=== PATIENT | female | born 1980 | race Caucasian/White ===

== ENCOUNTER 2018-12-24 07:44 | Emergency (ER) | payer BC ==
[~2018-12-24 07:44] MED LIST: ACET-1966 PO; ALB17R; ALBU8.5H12 IH; ATEN-1 PO; BUSP10TA95 PO; CEFU250 PO; CETI10CA8 PO; CIM300 PO; CIPR-344 PO; CLIN300C99 PO; CYC10 PO; CYCL10TA29 PO; DAR100 PO; FEXO180T74 PO; FLUT12HF2 IH; FLUT16SP20 NS; GUAI1TBM PO; HYDR-653 PO; HYDR115S2 PO; LOR5/325 PO; MONT10TA PO; MYLL PO; OMEP-114 PO; OXYC-865 PO; PAN40 PO; POTA2.5T7 PO; PRED20TA6 PO; QUE25 PO; SALSP; SERT-177 PO; SIMV10TA98 PO; SUC1 PO; SUCR1TAB PO; TRAM-420 PO
--- NOTE | 2018-12-24 07:47 | ER Report ---
History and Physical Time Seen By MD: 07:46 HPI/ROS CHIEF COMPLAINT: Upper respiratory infection HISTORY OF PRESENT ILLNESS: Patient is a 38-year-old female who is a smoker and also has a history of asthma who presents with approximately 2 weeks of an upper respiratory infection and cough along with asthma exacerbation. Patient stated she used her albuterol nebulizer this morning without any relief. She was seen by her family physician yesterday and started on amoxicillin. She reports right- sided chest pain worse with cough. She feels as if she can't "catch her breath". She also is reporting a sore throat. REVIEW OF SYSTEMS: Constitutional: No fever, no chills. Eyes: No discharge. ENT: Sore throat Cardiovascular: Right-sided chest pain Respiratory: Dry cough, shortness of breath. Gastrointestinal: No abdominal pain, no vomiting. Genitourinary: No hematuria. Musculoskeletal: No back pain. Skin: No rashes. Neurological: No headache. Allergies: Coded Allergies: clindamycin (Verified Allergy, Intermediate, SOB, rash, 11/12/15) ranitidine (Verified Allergy, Intermediate, hives, 11/12/15) aspirin (Verified Allergy, Mild, "INTERFERES WITH MY ASTHMA", 11/12/15) latex (Verified Allergy, Mild, SWOLLEN, DYSPNEA, 11/12/15) 'I DON'T REALLY THINK I AM ALLERGIC TO LATEX, I THINK IT IS JUST THE ADHESIVE FROM SOME TAPES" tramadol (Verified Allergy, Mild, RASH, 11/12/15) NSAIDS (Non-Steroidal Anti-Inflamma (Verified Allergy, Unknown, 11/12/15) Penicillins (Unverified Allergy, Unknown, 11/12/15) codeine (Verified Allergy, Unknown, 11/12/15) Home Meds Active Scripts Prednisone (PREDNISONE) 20 Mg Tablet, 60 MG PO QDAY, #12 TAB 0 Refills next dose on 12/25/18 Prov:TI WOODS MD 12/24/18 Omeprazole (PRILOSEC) 20 Mg Capsule., 1 TAB PO BID, #30 TAKE ONE TABLET BY MOUTH TWICE A DAY Prov:SAM DALAL DO 05/31/14 Reported Medications Montelukast Sodium (MONTELUKAST SODIUM) 10 Mg Tablet 12/24/18 Metformin Hcl (METFORMIN HCL ER) 500 Mg Tabcr 12/24/18 Albuterol Sulfate (VENTOLIN HFA) 18 Gm Inh 12/24/18 Gabapentin (GABAPENTIN) 300 Mg Capsule 12/24/18 Amoxicillin/Potassium Clav (AMOX TR-K CLV 875-125 MG TAB) 1 Each Tablet 12/24/18 Buspirone Hcl (BUSPIRONE HCL) 10 Mg Tablet, 10 MG PO BID, #20 TAB 11/12/15 Guaifenesin/Dextromethorphan (MUCINEX DM ER 1,200-60 MG TAB) 1 Each Tbmp.12hr, 0.5 EACH PO DAILY 07/06/15 Albuterol Sul Hfa 90 Mcg 8 Gm (VENTOLIN HFA 90 MCG 8 GM) 8.5 Gm Hfa.aer.ad, 1-2 PUFF IH 3-4XD PRN for SHORTNESS OF BREATH 05/31/14 Discontinued Reported Medications Simvastatin (SIMVASTATIN) 10 Mg Tablet, 10 MG PO HS, TAB 07/06/15 Montelukast Sodium (SINGULAIR) 10 Mg Tablet, 1 TAB PO QDAY TAKE ONE TABLET BY MOUTH EVERY DAY 02/23/15 Fluticasone/Salmeterol (ADVAIR HFA 115-21 MCG INHALER) 12 Gm Hfa.aer.ad, 1 PUFF IH BID 03/27/14 Discontinued Scripts Hydrocodone/Chlorphen Polis (TUSSIONEX PENNKINETIC SUSP) 480 Ml Jennifer.er.12h, 10 ML PO Q12H for cough, #100 Prov:ELLIE BAIRES DO 11/12/15 Prednisone (PREDNISONE) 20 Mg Tablet, 20 MG PO BID, #10 Prov:ELLIE BAIRES DO 11/12/15 Past Medical/Surgical History Patient has a past medical history of migraines, hypertension, hyperlipidemia, asthma, GERD, kidney stones, for the UTIs, bipolar, schizoaffective disorder, suicide attempt. The patient has surgical history of appendectomy, tubal ligation, tonsillectomy. Hx Smoking: Yes Smoking Status: Current: Every Day Smoker Exposure to Second Hand Smoke?: No Hx Substance Use Disorder: No Hx Alcohol Use: No Constitutional Vital Sign - Last 24 Hours 12/24/18 12/24/18 12/24/18 12/24/18 07:48 07:48 08:00 08:14 Temp 97.3 Pulse 90 84 Resp 25 B/P (MAP) 133/85 (101) 133/85 121/75 (90) Pulse Ox 96 96 O2 Delivery Room Air 12/24/18 12/24/18 12/24/18 12/24/18 08:28 08:28 08:30 08:44 Pulse 80 Resp 18 B/P (MAP) 100/83 (89) Pulse Ox 96 96 O2 Delivery Room Air 12/24/18 12/24/18 09:00 09:14 Pulse 85 B/P (MAP) 103/57 (72) Pulse Ox 91 Physical Exam General Appearance: The patient is alert, has no immediate need for airway protection and no signs of toxicity. Eyes: Pupils equal and round no pallor or injection. ENT, Mouth: Mucous membranes are moist. Respiratory: Patient has audible wheeze on exam. Also has bronchospastic cough. Prolonged expiratory phase. Cardiovascular: Regular rate and rhythm. Gastrointestinal: Abdomen is soft and non tender, no masses, bowel sounds normal. Neurological: Awake and alert Skin: Warm and dry, no rashes. Musculoskeletal: Neck is supple non tender. Extremities are nontender, nonswollen and have full range of motion. Medical Decision Making Data Points Laboratory Hematology Test 12/24/18 08:00 Influenza Virus Type A (PCR) Negative (NEGATIVE) Influenza Virus Type B (PCR) Negative (NEGATIVE) Group A Streptococcus (PCR) Negative (NEGATIVE) Chemistry Test 12/24/18 08:00 Influenza Virus Type A (PCR) Negative (NEGATIVE) Influenza Virus Type B (PCR) Negative (NEGATIVE) Group A Streptococcus (PCR) Negative (NEGATIVE) EKG/Imaging Imaging FACILITY: [facility] - [place] PATIENT NAME: Shayne Donohue : 1980 MR: [id number] V: [id number] EXAM DATE: ORDERING PHYSICIAN: TI WOODS TECHNOLOGIST: Location: Patient: Shayne Donohue : 1980 Visit/Account:[id number] Date of Sevice: 12/24/2018 EXAMINATION: Chest radiographs 2 views HISTORY: Cough. COMPARISON: 11/12/2015. FINDINGS: PA and lateral views of the chest are submitted. Lines/tubes: None. Lungs/pleura: No focal consolidation or pleural effusion. Heart: Negative. Mediastinum: Negative. Bony structures/body wall: Negative. IMPRESSION: No radiographic evidence of acute cardiopulmonary disease. Report Dictated By: Aurora Bradford MD at 12/24/2018 9:00 AM Report E-Signed By: Aurora Bradford MD at 12/24/2018 9:02 AM WSN:[id number] ED Course/Re-evaluation ED Course 12/24/2018 8:03:20 am plan at this time will be to check influenza screens rapid strep chest x-ray. We will give him on nebulizer treatment and oral steroids and check peak flow. Re-evaluation 12/24/2018 9:14:55 am breathing has improved at this time. We'll send the patient home on a short course of oral steroids and have her continue albuterol nebulized treatments at home. Decision to Disposition Date: Dec 24, 2018 Decision to Disposition Time: 09:14 Depart Departure Latest Vital Signs Vital Signs Date Time Temp Pulse Resp B/P (MAP) Pulse Ox O2 Delivery O2 Flow Rate FiO2 12/24/18 09:14 85 91 12/24/18 09:00 103/57 (72) 12/24/18 08:28 Room Air 12/24/18 08:28 18 12/24/18 07:48 97.3 Impression: Primary Impression: Asthma exacerbation Condition: Improved Disposition: HOME OR SELF-CARE New Scripts Prednisone (PREDNISONE) 20 Mg Tablet 60 MG PO QDAY, #12 TAB 0 Refills next dose on 12/25/18 Prov: TI WOODS MD 12/24/18 Departure Forms: ER Transition Record, Medications Reconciliation, Off Work/School Form, School or Work Release?: Work Number of days to be released: 1 Patient Portal Information Patient Instructions: Asthma (ED), Cigarette Smoking and Your Health (GEN) Problem Qualifiers Primary Impression: Asthma exacerbation Asthma severity: moderate Asthma persistence: persistent Qualified Codes: J45.41 - Moderate persistent asthma with (acute) exacerbation TI WOODS MD Dec 24, 2018 07:47
[2018-12-24] MEDS ORDERED: MONT10TA4 (07:57)
[2018-12-24] MEDS ORDERED: AMOX1TAB9 (07:57)
[2018-12-24] MEDS ORDERED: METXR500 (07:57)
[2018-12-24] MEDS ORDERED: GABA-549 (07:57)
[2018-12-24] MEDS ORDERED: ALB18R (07:57)
[2018-12-24] MEDS ORDERED: IPRATROPIUM 0.5MG/2.5ML NEB NEB ONE (08:00)
[2018-12-24] MEDS ORDERED: predniSONE 20 MG TAB PO ONE (08:00)
[2018-12-24] MEDS ORDERED: ALBUTEROL 2.5 MG/0.5ML ER ONLY NEB ONE (08:00)
[2018-12-24] MEDS ORDERED: IPRATROPIUM 0.5MG/2.5ML NEB ONE (08:22)
[2018-12-24] MEDS ORDERED: ACETAMINOPHEN 325 MG TAB PO ONE (08:40)
[2018-12-24 09:00] VITALS: BP 103/57
--- NOTE | 2018-12-24 09:06 | RADIOLOGY IMAGING REPORT ---
FACILITY: [facility] - [place] PATIENT NAME: Shayne Donohue : 1980 MR: [id number] V: [id number] EXAM DATE: ORDERING PHYSICIAN: TI WOODS TECHNOLOGIST: Location: Patient: Shayne Donohue : 1980 Visit/Account:[id number] Date of Sevice: 12/24/2018 EXAMINATION: Chest radiographs 2 views HISTORY: Cough. COMPARISON: 11/12/2015. FINDINGS: PA and lateral views of the chest are submitted. Lines/tubes: None. Lungs/pleura: No focal consolidation or pleural effusion. Heart: Negative. Mediastinum: Negative. Bony structures/body wall: Negative. IMPRESSION: No radiographic evidence of acute cardiopulmonary disease. Report Dictated By: Aurora Bradford MD at 12/24/2018 9:00 AM Report E-Signed By: Aurora Bradford MD at 12/24/2018 9:02 AM WSN:[id number]
[2018-12-24] MEDS ORDERED: PRED20TA6 PO (09:16)
== END 2018-12-24 09:25 | disposition home or self-care (01) ==
LOC: ER 07:49
DX: J45.41 Moderate persistent asthma with (acute) exacerbation (principal); F17.210 Nicotine dependence, cigarettes, uncomplicated
CPT/HCPCS: 71046; 87502; 87653; 94640; 99284; J7512; J7611; J7644